=== PATIENT | female | born 1990 | race Caucasian/White ===

== ENCOUNTER 2017-08-07 05:16 | Inpatient (IN) | payer OTHER ==
[2017-08-07] MEDS ORDERED: Sodium Chloride 0.9% 10 ML Syringe FLUSH PRN (05:35)
[2017-08-07] MEDS ORDERED: Sodium Chloride 0.9% 2.5 ML Syringe FLUSH PRN (05:35)
[2017-08-07] MEDS ORDERED: ceFAZolin 2 GM in Premix Bag 1 BAG IV ONE (05:35)
[2017-08-07] MEDS ORDERED: Citric Acid/Sodium Citrate Solution 30 ML Cup PO SCH (05:45)
[2017-08-07] MEDS ORDERED: Oxytocin/0.9 % Sodium Chloride 30 UNIT/500 ML BAG IV SCH (05:45)
[2017-08-07] MEDS: Lactated Ringers 1,000 ML IV SCH ×5 (06:05→22:22)
[2017-08-07] MEDS ORDERED: fentaNYL 100 MCG/2 ML SDV ONE (08:21)
[2017-08-07] MEDS ORDERED: Morphine PF 10 MG/10 ML SDV ONE (08:21)
[2017-08-07] MEDS ORDERED: ePHEDrine 50 MG/ML SDV ONE (08:23)
[2017-08-07] MEDS ORDERED: Sodium Chloride 0.9% 20 ML ONE (08:23)
[2017-08-07] MEDS ORDERED: Oxytocin 10 Units/1 ML SDV ONE (08:23)
[2017-08-07] MEDS ORDERED: Ondansetron 4 MG/2 ML SDV ONE (08:26)
[2017-08-07] MEDS ORDERED: Ketorolac 30 MG/ML SDV ONE (08:26)
[2017-08-07] MEDS ORDERED: Acetaminophen/oxyCODONE 325-5 MG Tab PO PRN ×2 (08:29→10:05)
[2017-08-07] MEDS ORDERED: Octyl 2-Cyanoacrylate 1 Tube ONE (08:34)
--- NOTE | 2017-08-07 08:38 | PCM.PREANE ---
Preanesthetic Assessment - Procedure Proposed Procedure: Repeat Section - Anesthesia/Transfusion/Family Hx Anesthesia History: Prior Anesthesia Without Reaction Other Type of Anesthesia Reaction Comment: "my mother wakes up during surgery" Transfusion History: No Prior Transfusion(s) - Review of Systems General: No Symptoms Pulmonary: Cough, Other (Recent cold, cough) Cardiovascular: No Symptoms Gastrointestinal: No Symptoms Neurological: No Symptoms Other: Reports: None - Physical Assessment NPO Status Date: 08/06/17 NPO Status Time: 23:55 Height: 1.68 m Weight: 128.82 kg ASA Class: 2 Mental Status: Alert & Oriented x3 Airway Class: Mallampati = 2 Dentition: Reports: Normal Dentition Thyro-Mental Finger Breadths: 3 Mouth Opening Finger Breadths: 3 ROM/Head Extension: Full Lungs: Other (crackles to base of dependent lung, clearing with coughing. Recent cold reported) Cardiovascular: Regular Rate, Regular Rhythm - Lab Values: Laboratory Last Values WBC 10.61 K/uL (4.0-11.0) 08/07/17 05:53 RBC 3.81 M/uL (4.30-5.90) L 08/07/17 05:53 Hgb 9.8 g/dL (12.0-16.0) L 08/07/17 05:53 Hct 30.8 % (36.0-46.0) L 08/07/17 05:53 MCV 80.8 fL (80.0-98.0) 08/07/17 05:53 MCH 25.7 pg (27.0-32.0) L 08/07/17 05:53 MCHC 31.8 g/dL (31.0-37.0) 08/07/17 05:53 RDW Std Deviation 44.0 fl (28.0-62.0) 08/07/17 05:53 RDW Coeff of Aleyda 15 % (11.0-15.0) 08/07/17 05:53 Plt Count 273 K/uL (150-400) 08/07/17 05:53 MPV 10.40 fL (7.40-12.00) 08/07/17 05:53 Nucleated RBC % 0.0 /100WBC 08/07/17 05:53 Nucleated RBCs # 0 K/uL 08/07/17 05:53 Blood Type A POSITIVE 08/07/17 05:53 Antibody Screen NEGATIVE 08/07/17 05:53 - Allergies Allergies/Adverse Reactions: Allergies Allergy/AdvReac Type Severity Reaction Status Date / Time adhesive Allergy Blisters Verified 08/01/17 09:42 - Blood Blood Available: Yes Product(s) Available: PRBC - Acknowledgements Anesthesia Type Planned: Spinal Pt an Appropriate Candidate for the Planned Anesthesia: Yes Alternatives and Risks of Anesthesia Discussed w Pt/Guardian: Yes Pt/Guardian Understands and Agrees with Anesthesia Plan: Yes PreAnesthesia Questionnaire HEENT History: Reports: Other (See Below) Other HEENT History: wears glasses for nearsightedness Gastrointestinal History: Reports: None Other Gastrointestinal History: intermittent GERD with Genitourinary History: Reports: None 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 Psychiatric History: Reports: Anxiety, Depression Endocrine/Metabolic History: Reports: Obesity/BMI 30+ - Infectious Disease History Infectious Disease History: Reports: Chicken Pox - Past Surgical History Head Surgeries/Procedures: Reports: None HEENT Surgical History: Reports: Other (See Below) Other HEENT Surgeries/Procedures: wisdom teeth extraction GI Surgical History: Reports: Cholecystectomy Female Surgical History: Reports: Section Musculoskeletal Surgical History: Reports: Other (See Below) Other Musculoskeletal Surgeries/Procedures:: cyst removed from middle finger - SUBSTANCE USE Smoking Status *Q: Never Smoker Recreational Drug Use History: No - HOME MEDS Home Medications: Home Meds Pnv No.95/Ferrous Fum/Folic AC [ Multivitamin Tablet] 1 tab PO DAILY [History] - CURRENT (IN HOUSE) MEDS Current Meds: Current Medications Citric Acid/Sodium Citrate (Bicitra Solution) 30 ml PO .ONCE PADMAJA Lactated Ringer's (Ringers, Lactated) 1,000 mls @ 500 mls/hr IV .BOLUS PADMAJA Last Admin: 08/07/17 08:23 Dose: 999 mls/hr Oxytocin/Sodium Chloride (Oxytocin 30 Unit/500 Ml-Ns) 30 unit in 500 mls @ 250 mls/hr IV TITRATE PADMAJA Sodium Chloride (Saline Flush) 10 ml FLUSH ASDIRECTED PRN PRN Reason: Keep Vein Open Sodium Chloride (Saline Flush) 2.5 ml FLUSH ASDIRECTED PRN PRN Reason: Keep Vein Open Discontinued Medications Ephedrine Sulfate (Ephedrine Sulfate) Confirm Administered Dose 50 mg .ROUTE .STK-MED ONE Stop: 08/07/17 08:24 Fentanyl (Sublimaze) Confirm Administered Dose 100 mcg .ROUTE .STK-MED ONE Stop: 08/07/17 08:22 Cefazolin Sodium/Dextrose 2 gm (/ Premix) 50 mls @ 100 mls/hr IV ONETIME ONE Stop: 08/07/17 06:04 Sodium Chloride (Normal Saline) Confirm Administered Dose 20 mls @ as directed .ROUTE .STK-MED ONE Stop: 08/07/17 08:24 Ketorolac Tromethamine (Toradol) Confirm Administered Dose 30 mg .ROUTE .STK- MED ONE Stop: 08/07/17 08:27 Morphine Sulfate (Duramorph Pf) Confirm Administered Dose 10 mg .ROUTE .STK-MED ONE Stop: 08/07/17 08:22 Ondansetron HCl (Zofran) Confirm Administered Dose 4 mg .ROUTE .STK-MED ONE Stop: 08/07/17 08:27 Oxytocin (Pitocin) Confirm Administered Dose 20 unit .ROUTE .STK-MED ONE Stop: 08/07/17 08:24
[2017-08-07] MEDS ORDERED: diphenhydrAMINE 50 MG/ML SDV IVPUSH PRN ×2 (08:45→10:05)
--- NOTE | 2017-08-07 09:12 | PCM.LDHP ---
L&D History of Present Illness - General Date of Service: 08/07/17 Admit Problem/Dx: Patient Status Order with Admit Dx/Problem 08/07/17 05:35 Patient Status [ADT] Routine Admission Diagnosis/Problem Admission Diagnosis/Problem Source of Information: Patient History Limitations: Reports: No Limitations - History of Present Illness Improves with: Reports: None Worsens with: Reports: None Associated Symptoms: Reports: N - Related Data Allergies/Adverse Reactions: Allergies Allergy/AdvReac Type Severity Reaction Status Date / Time adhesive Allergy Blisters Verified 08/01/17 09:42 Home Medications: Home Meds Pnv No.95/Ferrous Fum/Folic AC [ Multivitamin Tablet] 1 tab PO DAILY [History] Past Medical History HEENT History: Reports: Other (See Below) Other HEENT History: wears glasses for nearsightedness Gastrointestinal History: Reports: None Other Gastrointestinal History: intermittent GERD with Genitourinary History: Reports: None 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 Psychiatric History: Reports: Anxiety, Depression Endocrine/Metabolic History: Reports: Obesity/BMI 30+ - Infectious Disease History Infectious Disease History: Reports: Chicken Pox - Past Surgical History Head Surgeries/Procedures: Reports: None HEENT Surgical History: Reports: Other (See Below) Other HEENT Surgeries/Procedures: wisdom teeth extraction GI Surgical History: Reports: Cholecystectomy Female Surgical History: Reports: Section Musculoskeletal Surgical History: Reports: Other (See Below) Other Musculoskeletal Surgeries/Procedures:: cyst removed from middle finger Social & Family History - Family History Cardiac: Reports: High Cholesterol OBGYN: Reports: Neurological: Reports: Seizure Psychiatric: Reports: Autism Endocrine/Metabolic: Reports: Hyperthyroidism Hematologic: Reports: Anemia Oncologic: Reports: Ovarian - Tobacco Use Smoking Status *Q: Never Smoker - Caffeine Use Caffeine Use: Reports: Soda, Tea - Recreational Drug Use Recreational Drug Use: No H&P Review of Systems - Review of Systems: Review Of Systems: See Below General: Reports: No Symptoms HEENT: Reports: No Symptoms Pulmonary: Reports: No Symptoms Cardiovascular: Reports: No Symptoms Gastrointestinal: Reports: No Symptoms Genitourinary: Reports: No Symptoms Musculoskeletal: Reports: No Symptoms Skin: Reports: No Symptoms Psychiatric: Reports: No Symptoms Neurological: Reports: No Symptoms Hematologic/Lymphatic: Reports: No Symptoms Immunologic: Reports: No Symptoms L&D Exam - Exam Exam: See Below - Vital Signs Weight: 128.82 kg - OB Specific Fundal Height In cm: 39 Contraction Intensity: Mild Movement: Active Heart Tones: Present Presentation: Vertex - Exam General: Alert, Oriented HEENT: PERRLA, Conjunctiva Clear, EACs Clear, EOMI, Hearing Intact, Mucosa Moist & [place], Nares Patent, Normal Nasal Septum, Posterior Pharynx Clear, TMs Clear Neck: Supple, Trachea Midline Lungs: Clear to Auscultation, Normal Respiratory Effort Cardiovascular: Regular Rate, Regular Rhythm GI/Abdominal Exam: Normal Bowel Sounds, Soft, Non-Tender, No Organomegaly, No Distention, No Abnormal Bruit, No Mass, Pelvis Stable Rectal Exam: Normal Exam, Normal Rectal Tone Genitourinary: Normal external exam, Normal bimanual exam, Normal speculum exam Back Exam: Normal Inspection, Full Range of Motion Extremities: Normal Inspection, Normal Range of Motion, Non-Tender, No Pedal Edema, Normal Capillary Refill Skin: Warm, Dry, Intact Neurological: Cranial Nerves Intact, Reflexes Equal Bilateral Psychiatric: Alert, Normal Affect, Normal Mood - Patient Data Lab Results Last 24 hrs: Laboratory Results - last 24 hr 08/07/17 08/07/17 Range/Units 05:53 05:53 WBC 10.61 (4.0-11.0) K/uL RBC 3.81 L (4.30-5.90) M/uL Hgb 9.8 L (12.0-16.0) g/dL Hct 30.8 L (36.0-46.0) % MCV 80.8 (80.0-98.0) fL MCH 25.7 L (27.0-32.0) pg MCHC 31.8 (31.0-37.0) g/dL RDW Std Deviation 44.0 (28.0-62.0) fl RDW Coeff of Aleyda 15 (11.0-15.0) % Plt Count 273 (150-400) K/uL MPV 10.40 (7.40-12.00) fL Nucleated RBC % 0.0 /100WBC Nucleated RBCs # 0 K/uL Blood Type A POSITIVE Antibody Screen NEGATIVE Result Diagrams: 08/07/17 05:53 Problem List Initiated/Reviewed/Updated: Yes Orders Last 24hrs: Active Orders 24 hr Category Date Time Status Patient Status [ADT] Routine ADT 08/07/17 05:35 Active Bradycardia-Neuroaxis [employer] [RC] ROUTINE Care 08/07/17 08:29 Active Non Stress Test [RC] PER UNIT ROUTINE Care 08/07/17 05:35 Active Hypertension-Neuroaxis [employer] [RC] ROUTINE Care 08/07/17 08:29 Active Hypotension-Neuroaxis [employer] [RC] ROUTINE Care 08/07/17 08:29 Active Notify Provider Vital Signs [RC] PRN Care 08/07/17 05:37 Active Oxygen Therapy [RC] ASDIRECTED Care 08/07/17 08:29 Active Oxygen Therapy [RC] PER UNIT ROUTINE Care 08/07/17 08:29 Active Procedure Site Prep Instruct [RC] ASDIRECTED Care 08/07/17 05:35 Active Up ad Yudith [RC] ASDIRECTED Care 08/07/17 05:35 Active Verify Patient Consent Obtain [RC] ASDIRECTED Care 08/07/17 05:35 Active Vital Signs [RC] PER UNIT ROUTINE Care 08/07/17 05:35 Active Vital Signs [RC] Q1H Care 08/07/17 08:29 Active Acetaminophen/oxyCODONE [Percocet 325-5 MG] Med 08/07/17 08:29 Active 1 tab PO Q4H PRN Citric Acid/Sodium Citrate [Bicitra Solution] Med 08/07/17 05:45 Active 30 ml PO .ONCE Lactated Ringers [Ringers, Lactated] 1,000 ml Med 08/07/17 05:45 Active IV .BOLUS Nalbuphine [Nubain] Med 08/07/17 08:45 Active 5 mg IVPUSH Q3H PRN Oxytocin/0.9 % Sodium Chloride [Oxytocin 30 Unit/500 ML Med 08/07/17 05:45 Active -NS] 30 unit in 500 ml IV TITRATE Sodium Chloride 0.9% [Saline Flush] Med 08/07/17 05:35 Active 10 ml FLUSH ASDIRECTED PRN Sodium Chloride 0.9% [Saline Flush] Med 08/07/17 05:35 Active 2.5 ml FLUSH ASDIRECTED PRN diphenhydrAMINE [Benadryl] Med 08/07/17 08:45 Active 25 mg IVPUSH Q4H PRN AN Neuroaxis [employer] Precaution Reflex [OM.PC] PER Oth 08/07/17 08:30 Ordered UNIT ROUTINE AN Neuroaxis Dur[employer] Precaution Reflex [OM.PC] PER Oth 08/08/17 08:30 Ordered UNIT ROUTINE Peripheral IV Insertion Adult [OM.PC] Routine Oth 08/07/17 05:35 Ordered Schedule Procedure [COMM] Per Unit Routine Oth 08/07/17 05:35 Ordered Resuscitation Status Routine Resus Stat 08/07/17 05:35 Ordered Medication Orders Citric Acid/Sodium Citrate (Bicitra Solution) 30 ml PO .ONCE PADMAJA Diphenhydramine HCl (Benadryl) 25 mg IVPUSH Q4H PRN PRN Reason: Itching Stop: 08/08/17 09:02 Lactated Ringer's (Ringers, Lactated) 1,000 mls @ 500 mls/hr IV .BOLUS PADMAJA Last Admin: 08/07/17 09:06 Dose: 999 mls/hr Infusion: 08/07/17 09:06 Dose: 999 mls/hr Admin: 08/07/17 08:23 Dose: 999 mls/hr Infusion: 08/07/17 08:05 Dose: 500 mls/hr Admin: 08/07/17 06:05 Dose: 500 mls/hr Oxytocin/Sodium Chloride (Oxytocin 30 Unit/500 Ml-Ns) 30 unit in 500 mls @ 250 mls/hr IV TITRATE PADMAJA Nalbuphine HCl (Nubain) 5 mg IVPUSH Q3H PRN PRN Reason: Pruritis Stop: 08/08/17 09:01 Oxycodone/Acetaminophen (Percocet 325-5 Mg) 1 tab PO Q4H PRN PRN Reason: Pain (moderate 4-6) Sodium Chloride (Saline Flush) 10 ml FLUSH ASDIRECTED PRN PRN Reason: Keep Vein Open Sodium Chloride (Saline Flush) 2.5 ml FLUSH ASDIRECTED PRN PRN Reason: Keep Vein Open Assessment/Plan Comment:: Termpregnancy admited for elective repeat C/section
[2017-08-07] MEDS ORDERED: ceFAZolin 1 GM Vial ONE (09:19)
[2017-08-07] MEDS ORDERED: diphenhydrAMINE 50 MG/ML SDV ONE (09:57)
[2017-08-07] MEDS ORDERED: Ondansetron 4 MG/2 ML SDV IV PRN (10:05)
[2017-08-07] MEDS ORDERED: Lanolin 100% Cream 7 GM Tube TOP PRN (10:05)
[2017-08-07] MEDS ORDERED: Bisacodyl 10 MG Supp RECTAL PRN (10:05)
--- NOTE | 2017-08-07 10:10 | PCM.OPNOTE ---
- General Post-Op/Procedure Note Date of Surgery/Procedure: 08/07/17 Operative Procedure(s): Repeat C/Section Pre Op Diagnosis: [id number], previous C/Section Post-Op Diagnosis: Same Anesthesia Technique: Spinal Primary Surgeon: Mike Sheth Bulkhead Carpenter: Celeste Thomason EBL in mLs: 700 Complications: None Condition: Good
[2017-08-07] MEDS: Nalbuphine 10 MG/1 ML Vial IVPUSH PRN ×3 (10:41→20:12)
--- NOTE | 2017-08-07 10:42 | PCM.POSTAN ---
POST ANESTHESIA ASSESSMENT - MENTAL STATUS Mental Status: Alert (Treated with Nubain for urticaria), Oriented - RESPIRATORY Respiratory Status: Respiratory Rate WNL, Airway Patent, O2 Saturation Stable - CARDIOVASCULAR CV Status: Pulse Rate WNL, Blood Pressure Stable - GASTROINTESTINAL GI Status: No Symptoms - POST OP HYDRATION Hydration Status: Adequate & Stable
[2017-08-07] MEDS ORDERED: Naloxone 0.4 MG/ML Syringe IVPUSH PRN (10:43)
[2017-08-07] MEDS: Ketorolac 30 MG/ML SDV IVPUSH SCH ×3 (12:40→22:22)
--- NOTE | 2017-08-07 14:16 | PCM48HPAN ---
Post Anesthesia Note - EVALUATION WITHIN 48HRS OF ANESTHETIC Vital Signs in Normal Range: Yes Patient Participated in Evaluation: Yes Respiratory Function Stable: Yes Airway Patent: Yes Cardiovascular Function Stable: Yes Hydration Status Stable: Yes Pain Control Satisfactory: Yes Nausea and Vomiting Control Satisfactory: Yes Mental Status Recovered: Yes
--- NOTE | 2017-08-07 17:07 | OR ---
SURGEON: Mike Sheth MD DATE OF PROCEDURE: 08/07/2017 PREOPERATIVE DIAGNOSIS: Intrauterine 39 plus 5, previous section, admitted for elective repeat section. POSTOPERATIVE DIAGNOSIS: Intrauterine 39 plus 5, previous section, admitted for elective repeat section. OPERATION PERFORMED: Repeat low transverse section. FRAME STRAIGHTENER: Celeste Thomason CNM. 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 ESTIMATED BLOOD LOSS: 700 mL. COMPLICATIONS: None. FINDING: Female fetus. score reported to be 8 and 9. The weight is not available. Normal uterus, tubes, and ovaries. INDICATION: This patient did have 3 previous sections. She is admitted for elective repeat section. She is 39 plus 5. PROCEDURE IN DETAIL: The patient was brought to the OR, properly identified, and after adequate level of spinal anesthesia and with a Wade catheter in the bladder, the patient was prepped and draped in sterile fashion as usual. After taken a time-out, a low transverse Pfannenstiel skin incision was done. Sabino's fascia and rectus fascia were opened in the direction of the incision. The 2 recti muscles were and peritoneal cavity was entered. A bladder flap was raised from the lower uterine segment. A low transverse uterine incision was done, extended manually with the hand, and the fetus was in the vertex position, delivered without any problem, cried immediately. score reported to be 8 and 9. The weight was not available. The placenta delivered spontaneous, complete, and intact. Repair of the lower uterine segment was done with 2-0 Vicryl continuous interlocking in 2 layers. The peritoneal cavity evacuated completely from all blood and blood clots and closed with 3-0 Vicryl continuous. The rectus fascia was closed with #1 PDS double strand continuous. The Sabino's fascia was closed with 3-0 Vicryl continuous. The skin was closed with 3-0 Vicryl on a Giovani needle in a subcuticular fashion. Instrument and sponge count was correct. The patient tolerated the procedure well, went to recovery room in stable general condition. CHAPIN / CHANDANA /[id number]
[2017-08-07] MEDS: Docusate Sodium 100 MG Cap PO SCH (20:12)
[2017-08-08] MEDS: Ketorolac 30 MG/ML SDV IVPUSH SCH ×2 (04:05→10:01)
--- NOTE | 2017-08-08 07:54 | PCM.PNPP ---
- General Info Date of Service: 08/08/17 Admission Dx/Problem (Free Text): Patient Status Order with Admit Dx/Problem 08/07/17 05:35 Patient Status [ADT] Routine Admission Diagnosis/Problem Admission Diagnosis/Problem Functional Status: Reports: Pain Controlled, Tolerating Diet, Ambulating - Review of Systems General: Reports: No Symptoms HEENT: Reports: No Symptoms Pulmonary: Reports: No Symptoms Cardiovascular: Reports: No Symptoms Gastrointestinal: Reports: No Symptoms Genitourinary: Reports: No Symptoms Musculoskeletal: Reports: No Symptoms Skin: Reports: No Symptoms Neurological: Reports: No Symptoms Psychiatric: Reports: No Symptoms - General Info Date of Service: 08/08/17 - Patient Data Vital Signs - Most Recent: Last Vital Signs Temp 36.6 C 08/08/17 04:00 Pulse 71 08/08/17 04:00 Resp 18 08/08/17 06:00 BP 107/64 08/08/17 04:00 Pulse Ox 94 L 08/08/17 06:00 Weight - Most Recent: 128.82 kg I&O - Last 24 Hours: Intake & Output 08/07/17 08/08/17 08/08/17 22:59 06:59 14:59 Intake Total 934 2040 Output Total 1025 150 Balance -91 1890 Lab Results - Last 24 Hours: Laboratory Results - last 24 hr 08/08/17 Range/Units 05:31 Hgb 8.7 L (12.0-16.0) g/dL Hct 27.6 L (36.0-46.0) % Med Orders - Current: Current Medications Bisacodyl (Dulcolax) 10 mg RECTAL .ONCE PRN PRN Reason: Constipation Citric Acid/Sodium Citrate (Bicitra Solution) 30 ml PO .ONCE PADMAJA Diphenhydramine HCl (Benadryl) 25 mg IVPUSH Q4H PRN PRN Reason: Itching Stop: 08/08/17 09:02 Last Admin: 08/07/17 14:24 Dose: 25 mg Diphenhydramine HCl (Benadryl) 25 mg IVPUSH Q6H PRN PRN Reason: Itching or Nausea Docusate Sodium (Colace) 100 mg PO BID PADMAJA Last Admin: 08/07/17 20:12 Dose: 100 mg Emollient Ointment (Lansinoh Hpa) 0 gm TOP ASDIRECTED PRN PRN Reason: Sore Nipples Lactated Ringer's (Ringers, Lactated) 1,000 mls @ 500 mls/hr IV .BOLUS [facility] Last Admin: 08/07/17 09:06 Dose: 999 mls/hr Oxytocin/Sodium Chloride (Oxytocin 30 Unit/500 Ml-Ns) 30 unit in 500 mls @ 250 mls/hr IV TITRATE [facility] Lactated Ringer's (Ringers, Lactated) 1,000 mls @ 125 mls/hr IV ASDIRECTED [facility] Last Admin: 08/07/17 22:22 Dose: 125 mls/hr Ibuprofen (Motrin) 800 mg PO Q8H PRN PRN Reason: mild pain or fever Ketorolac Tromethamine (Toradol) 30 mg IVPUSH Q6H [facility] Stop: 08/08/17 10:16 Last Admin: 08/08/17 04:05 Dose: 30 mg Nalbuphine HCl (Nubain) 5 mg IVPUSH Q3H PRN PRN Reason: Pruritis Stop: 08/08/17 09:01 Last Admin: 08/07/17 20:12 Dose: 5 mg Naloxone HCl (Narcan) 0.1 mg IVPUSH ONETIME PRN PRN Reason: Respiratory Depression Stop: 08/08/17 10:43 Ondansetron HCl (Zofran) 4 mg IV Q4H PRN PRN Reason: Nausea/Vomiting Oxycodone/Acetaminophen (Percocet 325-5 Mg) 1 tab PO Q4H PRN PRN Reason: Pain (moderate 4-6) Oxycodone/Acetaminophen (Percocet 325-5 Mg) 1 tab PO Q4H PRN PRN Reason: Pain (moderate 4-6) Oxycodone/Acetaminophen (Percocet 325-5 Mg) 2 tab PO Q4H PRN PRN Reason: Pain (moderate 4-6) Sodium Chloride (Saline Flush) 10 ml FLUSH ASDIRECTED PRN PRN Reason: Keep Vein Open Sodium Chloride (Saline Flush) 2.5 ml FLUSH ASDIRECTED PRN PRN Reason: Keep Vein Open Discontinued Medications Cefazolin Sodium (Ancef) Confirm Administered Dose 2 gm .ROUTE .STK-MED ONE Stop: 08/07/17 09:20 Diphenhydramine HCl (Benadryl) Confirm Administered Dose 50 mg .ROUTE .STK-MED ONE Stop: 08/07/17 09:58 Ephedrine Sulfate (Ephedrine Sulfate) Confirm Administered Dose 50 mg .ROUTE .STK-MED ONE Stop: 08/07/17 08:24 Fentanyl (Sublimaze) Confirm Administered Dose 100 mcg .ROUTE .STK-MED ONE Stop: 08/07/17 08:22 Cefazolin Sodium/Dextrose 2 gm (/ Premix) 50 mls @ 100 mls/hr IV ONETIME ONE Stop: 08/07/17 06:04 Last Admin: 08/07/17 12:40 Dose: Not Given Sodium Chloride (Normal Saline) Confirm Administered Dose 20 mls @ as directed .ROUTE .STK-MED ONE Stop: 08/07/17 08:24 Ketorolac Tromethamine (Toradol) Confirm Administered Dose 30 mg .ROUTE .STK- MED ONE Stop: 08/07/17 08:27 Morphine Sulfate (Duramorph Pf) Confirm Administered Dose 10 mg .ROUTE .STK-MED ONE Stop: 08/07/17 08:22 Octyl Cyanoacrylate (Dermabond Advance) Confirm Administered Dose 1 applic .ROUTE .STK-MED ONE Stop: 08/07/17 08:35 Ondansetron HCl (Zofran) Confirm Administered Dose 4 mg .ROUTE .STK-MED ONE Stop: 08/07/17 08:27 Oxytocin (Pitocin) Confirm Administered Dose 20 unit .ROUTE .STK-MED ONE Stop: 08/07/17 08:24 - Interaction Infant Disposition, : in Room with Family Interaction: Holding Infant Feeding: Breastfed ; Nursed Well Support Person: - Recovery Exam Fundal Tone: Firm Fundal Level: At Umbilicus Fundal Placement: Midline Lochia Amount: Scant Lochia Color: Rubra/Red Perineum Description: Intact, Minimal Bruising/Swelling Episiotomy/Laceration: None Bladder Status: Indwelling Catheter in Place Urinary Elimination: Indwelling Catheter - Exam General: Alert, Oriented, Cooperative, No Acute Distress Lungs: Clear to Auscultation (O2 on due to drop in SPO2 when sleeping), Normal Respiratory Effort Cardiovascular: Regular Rate, Regular Rhythm, No Murmurs GI/Abdominal Exam: Soft, No Organomegaly Extremities: Normal Range of Motion, Non-Tender, No Pedal Edema, Normal Capillary Refill Skin: Warm, Dry, Intact Wound/Incisions: Healing Well Neurological: No New Focal Deficit, Normal Speech, Normal Tone Psy/Mental Status: Alert, Normal Affect, Normal Mood - Problem List & Annotations (1) Status post delivery SNOMED Code(s): 390847704 Code(s): Z98.891 - HISTORY OF UTERINE SCAR FROM PREVIOUS SURGERY Status: Acute Priority: High Current Visit: Yes - Problem List Review Problem List Initiated/Reviewed/Updated: Yes - Assessment Assessment:: PP day 1 Doing well, VSS, AF, lochia small, Incision dressing intact and dry, breast feeding well. Advised OOB to walk and shower. Stable - Plan Plan:: Term admitted for elective repeat C/section PP day 1 December d/c Wade, IV, and incision dressing when walking and showered. continue pp plan of care
[2017-08-08] MEDS: Docusate Sodium 100 MG Cap PO SCH ×2 (10:01→21:03)
--- NOTE | 2017-08-08 10:52 | PCM.SURGPN ---
- General Info Date of Service: 08/08/17 POD#: 1 Functional Status: Reports: Pain Controlled - Review of Systems General: Reports: No Symptoms HEENT: Reports: No Symptoms Pulmonary: Reports: No Symptoms Cardiovascular: Reports: No Symptoms Gastrointestinal: Reports: No Symptoms Genitourinary: Reports: No Symptoms Musculoskeletal: Reports: No Symptoms Skin: Reports: No Symptoms Neurological: Reports: No Symptoms Psychiatric: Reports: No Symptoms - Patient Data Vitals - Most Recent: Last Vital Signs Temp 36.4 C 08/08/17 09:15 Pulse 76 08/08/17 09:15 Resp 16 08/08/17 09:15 BP 104/63 08/08/17 09:15 Pulse Ox 91 L 08/08/17 09:15 Weight - Most Recent: 128.82 kg I&O - Last 24 Hours: Intake & Output 08/07/17 08/08/17 08/08/17 22:59 06:59 14:59 Intake Total 934 2040 Output Total 1025 150 Balance -91 1890 Lab Results Last 24 Hrs: Laboratory Results - last 24 hr 08/08/17 Range/Units 05:31 Hgb 8.7 L (12.0-16.0) g/dL Hct 27.6 L (36.0-46.0) % Med Orders - Current: Current Medications Bisacodyl (Dulcolax) 10 mg RECTAL .ONCE PRN PRN Reason: Constipation Citric Acid/Sodium Citrate (Bicitra Solution) 30 ml PO .ONCE PADMAJA Diphenhydramine HCl (Benadryl) 25 mg IVPUSH Q6H PRN PRN Reason: Itching or Nausea Docusate Sodium (Colace) 100 mg PO BID [facility] Last Admin: 08/08/17 10:01 Dose: 100 mg Emollient Ointment (Lansinoh Hpa) 0 gm TOP ASDIRECTED PRN PRN Reason: Sore Nipples Lactated Ringer's (Ringers, Lactated) 1,000 mls @ 500 mls/hr IV .BOLUS [facility] Last Admin: 08/07/17 09:06 Dose: 999 mls/hr Oxytocin/Sodium Chloride (Oxytocin 30 Unit/500 Ml-Ns) 30 unit in 500 mls @ 250 mls/hr IV TITRATE [facility] Lactated Ringer's (Ringers, Lactated) 1,000 mls @ 125 mls/hr IV ASDIRECTED PADMAJA Last Admin: 08/07/17 22:22 Dose: 125 mls/hr Ibuprofen (Motrin) 800 mg PO Q8H PRN PRN Reason: mild pain or fever Ondansetron HCl (Zofran) 4 mg IV Q4H PRN PRN Reason: Nausea/Vomiting Oxycodone/Acetaminophen (Percocet 325-5 Mg) 1 tab PO Q4H PRN PRN Reason: Pain (moderate 4-6) Oxycodone/Acetaminophen (Percocet 325-5 Mg) 1 tab PO Q4H PRN PRN Reason: Pain (moderate 4-6) Oxycodone/Acetaminophen (Percocet 325-5 Mg) 2 tab PO Q4H PRN PRN Reason: Pain (moderate 4-6) Sodium Chloride (Saline Flush) 10 ml FLUSH ASDIRECTED PRN PRN Reason: Keep Vein Open Sodium Chloride (Saline Flush) 2.5 ml FLUSH ASDIRECTED PRN PRN Reason: Keep Vein Open Discontinued Medications Cefazolin Sodium (Ancef) Confirm Administered Dose 2 gm .ROUTE .STK-MED ONE Stop: 08/07/17 09:20 Diphenhydramine HCl (Benadryl) 25 mg IVPUSH Q4H PRN PRN Reason: Itching Stop: 08/08/17 09:02 Last Admin: 08/07/17 14:24 Dose: 25 mg Diphenhydramine HCl (Benadryl) Confirm Administered Dose 50 mg .ROUTE .STK-MED ONE Stop: 08/07/17 09:58 Ephedrine Sulfate (Ephedrine Sulfate) Confirm Administered Dose 50 mg .ROUTE .STK-MED ONE Stop: 08/07/17 08:24 Fentanyl (Sublimaze) Confirm Administered Dose 100 mcg .ROUTE .STK-MED ONE Stop: 08/07/17 08:22 Cefazolin Sodium/Dextrose 2 gm (/ Premix) 50 mls @ 100 mls/hr IV ONETIME ONE Stop: 08/07/17 06:04 Last Admin: 08/07/17 12:40 Dose: Not Given Sodium Chloride (Normal Saline) Confirm Administered Dose 20 mls @ as directed .ROUTE .STK-MED ONE Stop: 08/07/17 08:24 Ketorolac Tromethamine (Toradol) Confirm Administered Dose 30 mg .ROUTE .STK- MED ONE Stop: 08/07/17 08:27 Ketorolac Tromethamine (Toradol) 30 mg IVPUSH Q6H PADMAJA Stop: 08/08/17 10:16 Last Admin: 08/08/17 10:01 Dose: 30 mg Morphine Sulfate (Duramorph Pf) Confirm Administered Dose 10 mg .ROUTE .STK-MED ONE Stop: 08/07/17 08:22 Nalbuphine HCl (Nubain) 5 mg IVPUSH Q3H PRN PRN Reason: Pruritis Stop: 08/08/17 09:01 Last Admin: 08/07/17 20:12 Dose: 5 mg Naloxone HCl (Narcan) 0.1 mg IVPUSH ONETIME PRN PRN Reason: Respiratory Depression Stop: 08/08/17 10:43 Octyl Cyanoacrylate (Dermabond Advance) Confirm Administered Dose 1 applic .ROUTE .STK-MED ONE Stop: 08/07/17 08:35 Ondansetron HCl (Zofran) Confirm Administered Dose 4 mg .ROUTE .STK-MED ONE Stop: 08/07/17 08:27 Oxytocin (Pitocin) Confirm Administered Dose 20 unit .ROUTE .STK-MED ONE Stop: 08/07/17 08:24 - Exam Wound/Incisions: Healing Well General: Alert, Oriented HEENT: Pupils Equal Neck: Supple Lungs: Clear to Auscultation, Normal Respiratory Effort Cardiovascular: Regular Rate, Regular Rhythm GI/Abdominal Exam: Normal Bowel Sounds, Soft, Non-Tender, No Organomegaly, No Distention, No Abnormal Bruit, No Mass, Pelvis Stable Extremities: Normal Inspection, Normal Range of Motion, Non-Tender, No Pedal Edema, Normal Capillary Refill Skin: Warm, Dry, Intact Neurological: No New Focal Deficit Psy/Mental Status: Alert, Normal Affect, Normal Mood - Problem List Review Problem List Initiated/Reviewed/Updated: Yes - My Orders Last 24 Hours: Active Orders 24 hr Category Date Time Status Patient Status [ADT] Routine ADT 08/07/17 10:06 Active Ambulate [RC] PER UNIT ROUTINE Care 08/07/17 10:06 Active Antiembolic Devices [RC] PER UNIT ROUTINE Care 08/07/17 10:06 Active Communication Order [RC] PER UNIT ROUTINE Care 08/07/17 10:06 Active Communication Order [RC] PER UNIT ROUTINE Care 08/07/17 10:06 Active Communication Order [RC] Per Unit Routine Care 08/07/17 10:06 Active May Shower [RC] ASDIRECTED Care 08/07/17 10:06 Active RT Incentive Spirometry [RC] Q2HWA Care 08/07/17 10:06 Active Regular Diet [DIET] Diet 08/07/17 Dinner Active Acetaminophen/oxyCODONE [Percocet 325-5 MG] Med 08/07/17 10:05 Active 1 tab PO Q4H PRN Acetaminophen/oxyCODONE [Percocet 325-5 MG] Med 08/07/17 10:05 Active 2 tab PO Q4H PRN Bisacodyl [Dulcolax] Med 08/07/17 10:05 Active 10 mg RECTAL .ONCE PRN Docusate Sodium [Colace] Med 08/07/17 21:00 Active 100 mg PO BID Ibuprofen [Motrin] Med 08/07/17 10:05 Active 800 mg PO Q8H PRN Lactated Ringers [Ringers, Lactated] 1,000 ml Med 08/07/17 10:15 Active IV ASDIRECTED Lanolin [Lansinoh HPA] Med 08/07/17 10:05 Active See Dose Instructions TOP ASDIRECTED PRN Ondansetron [Zofran] Med 08/07/17 10:05 Active 4 mg IV Q4H PRN diphenhydrAMINE [Benadryl] Med 08/07/17 10:05 Active 25 mg IVPUSH Q6H PRN AN Neuroaxis Duramorph Precaution Reflex [OM.PC] PER Oth 08/08/17 08:30 Ordered UNIT ROUTINE Assess Lochia [WOMSER] Per Unit Routine Oth 08/07/17 10:06 Ordered Assess Uterine Involution [WOMSER] Per Unit Routine Oth 08/07/17 10:06 Ordered Breast Pump [WOMSER] Per Unit Routine Oth 08/07/17 10:06 Ordered Peripheral IV Discontinue [OM.PC] Routine Oth 08/07/17 10:06 Ordered Sequential Compression Device [OM.PC] Per Unit Routine Oth 08/07/17 10:06 Ordered Medication Orders Bisacodyl (Dulcolax) 10 mg RECTAL .ONCE PRN PRN Reason: Constipation Citric Acid/Sodium Citrate (Bicitra Solution) 30 ml PO .ONCE [facility] Diphenhydramine HCl (Benadryl) 25 mg IVPUSH Q6H PRN PRN Reason: Itching or Nausea Docusate Sodium (Colace) 100 mg PO BID [facility] Last Admin: 08/08/17 10:01 Dose: 100 mg Admin: 08/07/17 20:12 Dose: 100 mg Emollient Ointment (Lansinoh Hpa) 0 gm TOP ASDIRECTED PRN PRN Reason: Sore Nipples Lactated Ringer's (Ringers, Lactated) 1,000 mls @ 500 mls/hr IV .BOLUS [facility] Last Admin: 08/07/17 09:06 Dose: 999 mls/hr Infusion: 08/07/17 09:06 Dose: 999 mls/hr Admin: 08/07/17 08:23 Dose: 999 mls/hr Infusion: 08/07/17 08:05 Dose: 500 mls/hr Admin: 08/07/17 06:05 Dose: 500 mls/hr Oxytocin/Sodium Chloride (Oxytocin 30 Unit/500 Ml-Ns) 30 unit in 500 mls @ 250 mls/hr IV TITRATE [facility] Lactated Ringer's (Ringers, Lactated) 1,000 mls @ 125 mls/hr IV ASDIRECTED [facility] Last Admin: 08/07/17 22:22 Dose: 125 mls/hr Infusion: 08/07/17 22:22 Dose: 125 mls/hr Admin: 08/07/17 14:24 Dose: 125 mls/hr Ibuprofen (Motrin) 800 mg PO Q8H PRN PRN Reason: mild pain or fever Ondansetron HCl (Zofran) 4 mg IV Q4H PRN PRN Reason: Nausea/Vomiting Oxycodone/Acetaminophen (Percocet 325-5 Mg) 1 tab PO Q4H PRN PRN Reason: Pain (moderate 4-6) Oxycodone/Acetaminophen (Percocet 325-5 Mg) 1 tab PO Q4H PRN PRN Reason: Pain (moderate 4-6) Oxycodone/Acetaminophen (Percocet 325-5 Mg) 2 tab PO Q4H PRN PRN Reason: Pain (moderate 4-6) Sodium Chloride (Saline Flush) 10 ml FLUSH ASDIRECTED PRN PRN Reason: Keep Vein Open Sodium Chloride (Saline Flush) 2.5 ml FLUSH ASDIRECTED PRN PRN Reason: Keep Vein Open - Assessment Assessment (Free Text/Narrative):: Status post section postoperative day #1 the patient is doing well her vital signs stable and her lab work is normal - Plan Plan (Free Text/Narrative):: Planning to discharge the patient tomorrow
[2017-08-08] MEDS: Acetaminophen/oxyCODONE 325-5 MG Tab PO PRN (16:16)
[2017-08-08] MEDS: diphenhydrAMINE 25 MG Cap PO PRN (18:47)
[2017-08-08] MEDS: Ibuprofen 800 MG Tab PO PRN (21:03)
[2017-08-09] MEDS: Acetaminophen/oxyCODONE 325-5 MG Tab PO PRN ×2 (01:05→06:26)
[2017-08-09] MEDS: Ibuprofen 800 MG Tab PO PRN (05:13)
[2017-08-09] MEDS: diphenhydrAMINE 25 MG Cap PO PRN (05:23)
--- NOTE | 2017-08-09 08:09 | PCM.DCSUM1 ---
Discharge Summary - Hospital Course Free Text/Narrative:: Discharge home with infant. Follow up 10 days for incision check and 6 weeks for post exam or sooner if needed. - Discharge Data Discharge Date: 08/09/17 Discharge Disposition: Home, Self-Care 01 Condition: Good - Discharge Diagnosis/Problem(s) (1) Status post delivery SNOMED Code(s): 850584344 ICD Code: Z98.891 - HISTORY OF UTERINE SCAR FROM PREVIOUS SURGERY Status: Acute Priority: High Current Visit: Yes - Patient Summary/Data Operative Procedure(s) Performed: Repeat C/Section - Patient Instructions Diet: Usual Diet as Tolerated Activity: As Tolerated, No Strenuous Activities, Rest and Relax Today Driving: May Drive Today Showering/Bathing: May Shower Wound/Incision Care: Keep Operative Site/Wound Site Clean and Dry Notify Provider of: Fever, Increased Pain, Swelling and Redness, Drainage, Nausea and/or Vomiting Other/Special Instructions: Discharge home with . Follow up 10 days for incision check and 6 weeks for post exam or sooner if needed. - Discharge Plan Home Medications: Home Meds Pnv No.95/Ferrous Fum/Folic AC [ Multivitamin Tablet] 1 tab PO DAILY [History] Referrals: [facility] [Outside] Celeste Thomason CNM [Mid-] - (1 week- August@ 3:00pm w/ Dr. Sheth 6 week- September 11 @ 3:00pm w/ Celeste Thomason ) - General Info Date of Service: 08/09/17 Admission Dx/Problem (Free Text: Patient Status Order with Admit Dx/Problem 08/07/17 05:35 Patient Status [ADT] Routine Admission Diagnosis/Problem Admission Diagnosis/Problem Functional Status: Reports: Pain Controlled, Tolerating Diet, Ambulating, Urinating - Review of Systems General: Reports: No Symptoms HEENT: Reports: No Symptoms Pulmonary: Reports: No Symptoms Cardiovascular: Reports: No Symptoms Gastrointestinal: Reports: No Symptoms Genitourinary: Reports: No Symptoms Musculoskeletal: Reports: No Symptoms Skin: Reports: No Symptoms Neurological: Reports: No Symptoms Psychiatric: Reports: No Symptoms - Patient Data Vitals - Most Recent: Last Vital Signs Temp 36.5 C 08/09/17 03:51 Pulse 79 08/09/17 03:51 Resp 18 08/09/17 03:51 BP 102/64 08/09/17 03:51 Pulse Ox 97 08/09/17 03:51 Weight - Most Recent: 128.82 kg Med Orders - Current: Current Medications Bisacodyl (Dulcolax) 10 mg RECTAL .ONCE PRN PRN Reason: Constipation Citric Acid/Sodium Citrate (Bicitra Solution) 30 ml PO .ONCE PADMAJA Diphenhydramine HCl (Benadryl) 25 mg IVPUSH Q6H PRN PRN Reason: Itching or Nausea Diphenhydramine HCl (Benadryl) 25 mg PO Q4H PRN PRN Reason: Itching Last Admin: 08/09/17 05:23 Dose: 25 mg Docusate Sodium (Colace) 100 mg PO BID PADMAJA Last Admin: 08/08/17 21:03 Dose: 100 mg Emollient Ointment (Lansinoh Hpa) 0 gm TOP ASDIRECTED PRN PRN Reason: Sore Nipples Lactated Ringer's (Ringers, Lactated) 1,000 mls @ 500 mls/hr IV .BOLUS [facility] Last Admin: 08/07/17 09:06 Dose: 999 mls/hr Oxytocin/Sodium Chloride (Oxytocin 30 Unit/500 Ml-Ns) 30 unit in 500 mls @ 250 mls/hr IV TITRATE [facility] Lactated Ringer's (Ringers, Lactated) 1,000 mls @ 125 mls/hr IV ASDIRECTED [facility] Last Admin: 08/07/17 22:22 Dose: 125 mls/hr Ibuprofen (Motrin) 800 mg PO Q8H PRN PRN Reason: mild pain or fever Last Admin: 08/09/17 05:13 Dose: 800 mg Ondansetron HCl (Zofran) 4 mg IV Q4H PRN PRN Reason: Nausea/Vomiting Oxycodone/Acetaminophen (Percocet 325-5 Mg) 1 tab PO Q4H PRN PRN Reason: Pain (moderate 4-6) Oxycodone/Acetaminophen (Percocet 325-5 Mg) 1 tab PO Q4H PRN PRN Reason: Pain (moderate 4-6) Last Admin: 08/08/17 12:29 Dose: 1 tab Oxycodone/Acetaminophen (Percocet 325-5 Mg) 2 tab PO Q4H PRN PRN Reason: Pain (moderate 4-6) Last Admin: 08/09/17 06:26 Dose: 2 tab Sodium Chloride (Saline Flush) 10 ml FLUSH ASDIRECTED PRN PRN Reason: Keep Vein Open Sodium Chloride (Saline Flush) 2.5 ml FLUSH ASDIRECTED PRN PRN Reason: Keep Vein Open Discontinued Medications Cefazolin Sodium (Ancef) Confirm Administered Dose 2 gm .ROUTE .STK-MED ONE Stop: 08/07/17 09:20 Diphenhydramine HCl (Benadryl) 25 mg IVPUSH Q4H PRN PRN Reason: Itching Stop: 08/08/17 09:02 Last Admin: 08/07/17 14:24 Dose: 25 mg Diphenhydramine HCl (Benadryl) Confirm Administered Dose 50 mg .ROUTE .STK-MED ONE Stop: 08/07/17 09:58 Ephedrine Sulfate (Ephedrine Sulfate) Confirm Administered Dose 50 mg .ROUTE .STK-MED ONE Stop: 08/07/17 08:24 Fentanyl (Sublimaze) Confirm Administered Dose 100 mcg .ROUTE .STK-MED ONE Stop: 08/07/17 08:22 Cefazolin Sodium/Dextrose 2 gm (/ Premix) 50 mls @ 100 mls/hr IV ONETIME ONE Stop: 08/07/17 06:04 Last Admin: 08/07/17 12:40 Dose: Not Given Sodium Chloride (Normal Saline) Confirm Administered Dose 20 mls @ as directed .ROUTE .STK-MED ONE Stop: 08/07/17 08:24 Ketorolac Tromethamine (Toradol) Confirm Administered Dose 30 mg .ROUTE .STK- MED ONE Stop: 08/07/17 08:27 Ketorolac Tromethamine (Toradol) 30 mg IVPUSH Q6H PADMAJA Stop: 08/08/17 10:16 Last Admin: 08/08/17 10:01 Dose: 30 mg Morphine Sulfate (Duramorph Pf) Confirm Administered Dose 10 mg .ROUTE .STK-MED ONE Stop: 08/07/17 08:22 Nalbuphine HCl (Nubain) 5 mg IVPUSH Q3H PRN PRN Reason: Pruritis Stop: 08/08/17 09:01 Last Admin: 08/07/17 20:12 Dose: 5 mg Naloxone HCl (Narcan) 0.1 mg IVPUSH ONETIME PRN PRN Reason: Respiratory Depression Stop: 08/08/17 10:43 Octyl Cyanoacrylate (Dermabond Advance) Confirm Administered Dose 1 applic .ROUTE .STK-MED ONE Stop: 08/07/17 08:35 Ondansetron HCl (Zofran) Confirm Administered Dose 4 mg .ROUTE .STK-MED ONE Stop: 08/07/17 08:27 Oxytocin (Pitocin) Confirm Administered Dose 20 unit .ROUTE .STK-MED ONE Stop: 08/07/17 08:24 - Exam General: Reports: Alert, Oriented, Cooperative, No Acute Distress Lungs: Reports: Clear to Auscultation, Normal Respiratory Effort Cardiovascular: Reports: Regular Rate, Regular Rhythm, No Murmurs GI/Abdominal Exam: Soft, Non-Tender (Female) Exam: Vaginal Bleeding Rectal (Female) Exam: Deferred Back Exam: Reports: Full Range of Motion Extremities: Normal Range of Motion, Non-Tender, No Pedal Edema, Normal Capillary Refill Skin: Reports: Warm, Dry, Intact Wound/Incisions: Reports: Healing Well, No Drainage Neurological: Reports: No New Focal Deficit, Normal Speech, Normal Tone Psy/Mental Status: Reports: Alert, Normal Affect, Normal Mood *Q Meaningful Use (DIS) - VTE *Q VTE Criteria *Q: - Stroke *Q Stroke Criteria *Q: - AMI *Q AMI Criteria *Q:
--- NOTE | 2017-08-09 08:57 | PCM.SURGPN ---
- General Info Date of Service: 08/09/17 POD#: 2 Functional Status: Reports: Pain Controlled - Review of Systems General: Reports: No Symptoms HEENT: Reports: No Symptoms Pulmonary: Reports: No Symptoms Cardiovascular: Reports: No Symptoms Gastrointestinal: Reports: No Symptoms Genitourinary: Reports: No Symptoms Musculoskeletal: Reports: No Symptoms Skin: Reports: No Symptoms Neurological: Reports: No Symptoms Psychiatric: Reports: No Symptoms - Patient Data Vitals - Most Recent: Last Vital Signs Temp 36.5 C 08/09/17 03:51 Pulse 79 08/09/17 03:51 Resp 18 08/09/17 03:51 BP 102/64 08/09/17 03:51 Pulse Ox 97 08/09/17 03:51 Weight - Most Recent: 128.82 kg Med Orders - Current: Current Medications Bisacodyl (Dulcolax) 10 mg RECTAL .ONCE PRN PRN Reason: Constipation Citric Acid/Sodium Citrate (Bicitra Solution) 30 ml PO .ONCE PADMAJA Diphenhydramine HCl (Benadryl) 25 mg IVPUSH Q6H PRN PRN Reason: Itching or Nausea Diphenhydramine HCl (Benadryl) 25 mg PO Q4H PRN PRN Reason: Itching Last Admin: 08/09/17 05:23 Dose: 25 mg Docusate Sodium (Colace) 100 mg PO BID PADMAJA Last Admin: 08/08/17 21:03 Dose: 100 mg Emollient Ointment (Lansinoh Hpa) 0 gm TOP ASDIRECTED PRN PRN Reason: Sore Nipples Lactated Ringer's (Ringers, Lactated) 1,000 mls @ 500 mls/hr IV .BOLUS [facility] Last Admin: 08/07/17 09:06 Dose: 999 mls/hr Oxytocin/Sodium Chloride (Oxytocin 30 Unit/500 Ml-Ns) 30 unit in 500 mls @ 250 mls/hr IV TITRATE PADMAJA Lactated Ringer's (Ringers, Lactated) 1,000 mls @ 125 mls/hr IV ASDIRECTED [facility] Last Admin: 08/07/17 22:22 Dose: 125 mls/hr Ibuprofen (Motrin) 800 mg PO Q8H PRN PRN Reason: mild pain or fever Last Admin: 08/09/17 05:13 Dose: 800 mg Ondansetron HCl (Zofran) 4 mg IV Q4H PRN PRN Reason: Nausea/Vomiting Oxycodone/Acetaminophen (Percocet 325-5 Mg) 1 tab PO Q4H PRN PRN Reason: Pain (moderate 4-6) Oxycodone/Acetaminophen (Percocet 325-5 Mg) 1 tab PO Q4H PRN PRN Reason: Pain (moderate 4-6) Last Admin: 08/08/17 12:29 Dose: 1 tab Oxycodone/Acetaminophen (Percocet 325-5 Mg) 2 tab PO Q4H PRN PRN Reason: Pain (moderate 4-6) Last Admin: 08/09/17 06:26 Dose: 2 tab Sodium Chloride (Saline Flush) 10 ml FLUSH ASDIRECTED PRN PRN Reason: Keep Vein Open Sodium Chloride (Saline Flush) 2.5 ml FLUSH ASDIRECTED PRN PRN Reason: Keep Vein Open Discontinued Medications Cefazolin Sodium (Ancef) Confirm Administered Dose 2 gm .ROUTE .STK-MED ONE Stop: 08/07/17 09:20 Diphenhydramine HCl (Benadryl) 25 mg IVPUSH Q4H PRN PRN Reason: Itching Stop: 08/08/17 09:02 Last Admin: 08/07/17 14:24 Dose: 25 mg Diphenhydramine HCl (Benadryl) Confirm Administered Dose 50 mg .ROUTE .STK-MED ONE Stop: 08/07/17 09:58 Ephedrine Sulfate (Ephedrine Sulfate) Confirm Administered Dose 50 mg .ROUTE .STK-MED ONE Stop: 08/07/17 08:24 Fentanyl (Sublimaze) Confirm Administered Dose 100 mcg .ROUTE .STK-MED ONE Stop: 08/07/17 08:22 Cefazolin Sodium/Dextrose 2 gm (/ Premix) 50 mls @ 100 mls/hr IV ONETIME ONE Stop: 08/07/17 06:04 Last Admin: 08/07/17 12:40 Dose: Not Given Sodium Chloride (Normal Saline) Confirm Administered Dose 20 mls @ as directed .ROUTE .STK-MED ONE Stop: 08/07/17 08:24 Ketorolac Tromethamine (Toradol) Confirm Administered Dose 30 mg .ROUTE .STK- MED ONE Stop: 01/01/18 08:27 Ketorolac Tromethamine (Toradol) 30 mg IVPUSH Q6H [facility] Stop: 08/08/17 10:16 Last Admin: 08/08/17 10:01 Dose: 30 mg Morphine Sulfate (Duramorph Pf) Confirm Administered Dose 10 mg .ROUTE .STK-MED ONE Stop: 08/07/17 08:22 Nalbuphine HCl (Nubain) 5 mg IVPUSH Q3H PRN PRN Reason: Pruritis Stop: 08/08/17 09:01 Last Admin: 08/07/17 20:12 Dose: 5 mg Naloxone HCl (Narcan) 0.1 mg IVPUSH ONETIME PRN PRN Reason: Respiratory Depression Stop: 08/08/17 10:43 Octyl Cyanoacrylate (Dermabond Advance) Confirm Administered Dose 1 applic .ROUTE .STK-MED ONE Stop: 08/07/17 08:35 Ondansetron HCl (Zofran) Confirm Administered Dose 4 mg .ROUTE .STK-MED ONE Stop: 08/07/17 08:27 Oxytocin (Pitocin) Confirm Administered Dose 20 unit .ROUTE .STK-MED ONE Stop: 08/07/17 08:24 - Exam Wound/Incisions: Healing Well General: Alert, Oriented HEENT: Pupils Equal Neck: Supple Lungs: Clear to Auscultation, Normal Respiratory Effort Cardiovascular: Regular Rate, Regular Rhythm GI/Abdominal Exam: Normal Bowel Sounds, Soft, Non-Tender, No Organomegaly, No Distention, No Abnormal Bruit, No Mass, Pelvis Stable Extremities: Normal Inspection, Normal Range of Motion, Non-Tender, No Pedal Edema, Normal Capillary Refill Skin: Warm, Dry, Intact Neurological: No New Focal Deficit Psy/Mental Status: Alert, Normal Affect, Normal Mood - Problem List Review Problem List Initiated/Reviewed/Updated: Yes - My Orders Last 24 Hours: Active Orders 24 hr Category Date Time Status Ready for Discharge [RC] PER UNIT ROUTINE Care 08/09/17 08:10 Active diphenhydrAMINE [Benadryl] Med 08/08/17 18:11 Active 25 mg PO Q4H PRN AN Neuroaxis Duramorph Precaution Reflex [OM.PC] PER Oth 08/08/17 08:30 Ordered UNIT ROUTINE Medication Orders Bisacodyl (Dulcolax) 10 mg RECTAL .ONCE PRN PRN Reason: Constipation Citric Acid/Sodium Citrate (Bicitra Solution) 30 ml PO .ONCE PADMAJA Diphenhydramine HCl (Benadryl) 25 mg IVPUSH Q6H PRN PRN Reason: Itching or Nausea Diphenhydramine HCl (Benadryl) 25 mg PO Q4H PRN PRN Reason: Itching Last Admin: 08/09/17 05:23 Dose: 25 mg Admin: 08/08/17 18:47 Dose: 25 mg Docusate Sodium (Colace) 100 mg PO BID PADMAJA Last Admin: 08/08/17 21:03 Dose: 100 mg Admin: 08/08/17 10:01 Dose: 100 mg Admin: 08/07/17 20:12 Dose: 100 mg Emollient Ointment (Lansinoh Hpa) 0 gm TOP ASDIRECTED PRN PRN Reason: Sore Nipples Lactated Ringer's (Ringers, Lactated) 1,000 mls @ 500 mls/hr IV .BOLUS [facility] Last Admin: 08/07/17 09:06 Dose: 999 mls/hr Infusion: 08/07/17 09:06 Dose: 999 mls/hr Admin: 08/07/17 08:23 Dose: 999 mls/hr Infusion: 08/07/17 08:05 Dose: 500 mls/hr Admin: 08/07/17 06:05 Dose: 500 mls/hr Oxytocin/Sodium Chloride (Oxytocin 30 Unit/500 Ml-Ns) 30 unit in 500 mls @ 250 mls/hr IV TITRATE [facility] Lactated Ringer's (Ringers, Lactated) 1,000 mls @ 125 mls/hr IV ASDIRECTED [facility] Last Admin: 08/07/17 22:22 Dose: 125 mls/hr Infusion: 08/07/17 22:22 Dose: 125 mls/hr Admin: 08/07/17 14:24 Dose: 125 mls/hr Ibuprofen (Motrin) 800 mg PO Q8H PRN PRN Reason: mild pain or fever Last Admin: 08/09/17 05:13 Dose: 800 mg Admin: 08/08/17 21:03 Dose: 800 mg Ondansetron HCl (Zofran) 4 mg IV Q4H PRN PRN Reason: Nausea/Vomiting Oxycodone/Acetaminophen (Percocet 325-5 Mg) 1 tab PO Q4H PRN PRN Reason: Pain (moderate 4-6) Oxycodone/Acetaminophen (Percocet 325-5 Mg) 1 tab PO Q4H PRN PRN Reason: Pain (moderate 4-6) Last Admin: 08/08/17 12:29 Dose: 1 tab Oxycodone/Acetaminophen (Percocet 325-5 Mg) 2 tab PO Q4H PRN PRN Reason: Pain (moderate 4-6) Last Admin: 08/09/17 06:26 Dose: 2 tab Admin: 08/09/17 01:05 Dose: 2 tab Admin: 08/08/17 16:16 Dose: 2 tab Sodium Chloride (Saline Flush) 10 ml FLUSH ASDIRECTED PRN PRN Reason: Keep Vein Open Sodium Chloride (Saline Flush) 2.5 ml FLUSH ASDIRECTED PRN PRN Reason: Keep Vein Open - Assessment Assessment (Free Text/Narrative):: Status post section postoperative day #2 the patient is doing well - Plan Plan (Free Text/Narrative):: Was sent home today follow-up appointment in one week
== END 2017-08-09 14:25 | disposition home or self-care (01) | DRG 766 ==
LOC: MW.OB 05:16
PROVIDERS: ADMIT Obstetrics & Gynecology; ATTEND Obstetrics & Gynecology
PROC: 10D00Z1 Extraction of Products of Conception, Low, Open Approach (ICD-10-PCS; principal; 2017-08-07)
DX: O34.211 Maternal care for low transverse scar from previous cesarean delivery (principal); Z3A.39 39 weeks gestation of pregnancy; Z37.0 Single live birth
CPT/HCPCS: 01961; 36415; 59025; 85014; 85018; 85027; 86850; 86900; 86901; A9270-GY; J0690; J1200; J1885; J2270; J2300; J2405; J2590; J3010; J7120

== ENCOUNTER 2019-05-24 22:21 | Emergency (ER) | payer OTHER ==
--- NOTE | 2019-05-24 22:35 | EDM.PDOC ---
ED HPI GENERAL MEDICAL PROBLEM - General Stated Complaint: HEADACHE Time Seen by Provider: 05/24/19 22:32 - History of Present Illness INITIAL COMMENTS - FREE TEXT/NARRATIVE: HISTORY AND PHYSICAL: History of present illness: Patient's a 29-year-old white female presented with a headache 2 weeks she was seen by her private medical doctor recently and given a injection she's had no significant improvement she denies fever chills denies history of chronic headache denies history of migraines denies neck pain or stiffness recent trauma or other concern Review of systems: As per history of present illness and below otherwise all systems reviewed and negative. Past medical history: As per history of present illness and as reviewed below otherwise noncontributory. Surgical history: As per history of present illness and as reviewed below otherwise noncontributory. Social history: No reported history of drug or alcohol abuse. Family history: As per history of present illness and as reviewed below otherwise noncontributory. Physical exam: HEENT: Atraumatic, normocephalic, pupils reactive, negative for conjunctival pallor or scleral icterus, mucous membranes moist, throat clear, neck supple, nontender, trachea midline. Lungs: Clear to auscultation, breath sounds equal bilaterally, chest nontender. Heart: S1S2, regular, negative for clicks, rubs, or JVD. Abdomen: Soft, nondistended, nontender. Negative for masses or hepatosplenomegaly. Negative for costovertebral tenderness. Pelvis: Stable nontender. Genitourinary: Deferred. Rectal: Deferred. Extremities: Atraumatic, negative for cords or calf pain. Neurovascular unremarkable. Neuro: Awake, alert, oriented. Cranial nerves II through XII unremarkable. Cerebellum unremarkable. Motor and sensory unremarkable throughout. Exam nonfocal. Diagnostics: CT brain Therapeutics: Saline 1 L bolus and Toradol 30 mg IV Zofran 4 mg IV Reglan 10 mg IV and Benadryl 50 mg IV Impression: #1 cephalgia Definitive disposition and diagnosis as appropriate pending reevaluation and review of above. 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 Psychiatric History: Reports: Anxiety, Depression Endocrine/Metabolic History: Reports: Obesity/BMI 30+ - Infectious Disease History Infectious Disease History: Reports: Chicken Pox - Past Surgical History Head Surgeries/Procedures: Reports: None HEENT Surgical History: Reports: Other (See Below) Other HEENT Surgeries/Procedures: wisdom teeth extraction GI Surgical History: Reports: Cholecystectomy Female Surgical History: Reports: Section Musculoskeletal Surgical History: Reports: Other (See Below) Other Musculoskeletal Surgeries/Procedures:: cyst removed from middle finger Social & Family History - Family History Cardiac: Reports: High Cholesterol OBGYN: Reports: Neurological: Reports: Seizure Psychiatric: Reports: Autism Endocrine/Metabolic: Reports: Hyperthyroidism Hematologic: Reports: Anemia Oncologic: Reports: Ovarian - Caffeine Use Caffeine Use: Reports: Soda, Tea ED ROS GENERAL - Review of Systems Review Of Systems: ROS reveals no pertinent complaints other than HPI. ED EXAM, GENERAL - Physical Exam Exam: See Below (dictation) Course - Vital Signs Last Recorded V/S: Last Vital Signs Temp 36.6 C 05/24/19 22:25 Pulse 75 05/24/19 23:32 Resp 18 05/24/19 23:32 BP 147/68 H 05/24/19 23:32 Pulse Ox 95 05/24/19 23:32 - Orders/Labs/Meds Labs: Laboratory Tests 05/24/19 05/24/19 05/24/19 Range/Units 22:40 23:00 23:00 WBC 11.22 H (4.0-11.0) K/uL RBC 4.38 (4.30-5.90) M/uL Hgb 12.1 (12.0-16.0) g/dL Hct 37.8 (36.0-46.0) % MCV 86.3 (80.0-98.0) fL MCH 27.6 (27.0-32.0) pg MCHC 32.0 (31.0-37.0) g/dL RDW Std Deviation 45.1 (28.0-62.0) fl RDW Coeff of Aleyda 14 (11.0-15.0) % Plt Count 348 (150-400) K/uL MPV 10.30 (7.40-12.00) fL Neut % (Auto) 50.6 (48.0-80.0) % Lymph % (Auto) 39.8 (16.0-40.0) % [place] % (Auto) 7.5 (0.0-15.0) % Eos % (Auto) 1.7 (0.0-7.0) % Baso % (Auto) 0.4 (0.0-1.5) % Neut # (Auto) 5.7 (1.4-5.7) K/uL Lymph # (Auto) 4.5 H (0.6-2.4) K/uL [place] # (Auto) 0.8 (0.0-0.8) K/uL Eos # (Auto) 0.2 (0.0-0.7) K/uL Baso # (Auto) 0.1 (0.0-0.1) K/uL Nucleated RBC % 0.0 /100WBC Nucleated RBCs # 0 K/uL Sodium 143 (136-145) mmol/L Potassium 3.6 (3.5-5.1) mmol/L Chloride 107 (98-107) mmol/L Carbon Dioxide 25.6 (21.0-32.0) mmol/L BUN 14 (7.0-18.0) mg/dL Creatinine 0.8 (0.6-1.0) mg/dL Est Cr Clr Drug Dosing 95.38 mL/min Estimated GFR (MDRD) > 60.0 ml/min Glucose 118 H (74-106) mg/dL Calcium 8.7 (8.5-10.1) mg/dL Total Bilirubin 0.2 (0.2-1.0) mg/dL AST 20 (15-37) IU/L ALT 38 (14-63) IU/L Alkaline Phosphatase 107 (46-116) U/L Total Protein 7.8 (6.4-8.2) g/dL Albumin 3.6 (3.4-5.0) g/dL Globulin 4.2 H (2.6-4.0) g/dL Albumin/Globulin Ratio 0.9 (0.9-1.6) Urine HCG, Qual NEGATIVE (NEGATIVE) Meds: Medications Discontinued Medications Generic Name Dose Route Start Last Admin Trade Name Jere PRN Reason Stop Dose Admin Diphenhydramine HCl 50 mg 05/24/19 22:41 05/24/19 23:22 Benadryl IVPUSH 05/24/19 22:42 50 mg ONETIME ONE Administration Sodium Chloride 1,000 mls @ 999 mls/hr 05/24/19 22:39 05/24/19 23:04 Normal Saline IV 05/24/19 23:39 999 mls/hr .Bolus ONE Administration Ketorolac Tromethamine 30 mg 05/24/19 22:40 05/24/19 23:06 Toradol IVPUSH 05/24/19 22:41 30 mg ONETIME ONE Administration Metoclopramide HCl 10 mg 05/24/19 22:41 05/24/19 23:23 Reglan IVPUSH 05/24/19 22:42 10 mg ONETIME ONE Administration Ondansetron HCl 4 mg 05/24/19 22:40 05/24/19 23:04 Zofran IVPUSH 05/24/19 22:41 4 mg ONETIME ONE Administration Departure - Departure Time of Disposition: 00:39 Disposition: Home, Self-Care 01 Condition: Good Clinical Impression: Cephalgia - Discharge Information Referrals: PCP,None [Primary Care Provider] - Additional Instructions: The following information is given to patients seen in the emergency department who are being discharged to home. This information is to outline your options for follow-up care. We provide all patients seen in our emergency department with a follow-up referral. The need for follow-up, as well as the timing and circumstances, are variable depending upon the specifics of your emergency department visit. If you don't have a primary care physician on staff, we will provide you with a referral. We always advise you to contact your personal physician following an emergency department visit to inform them of the circumstance of the visit and for follow-up with them and/or the need for any referrals to a consulting specialist. The emergency department will also refer you to a specialist when appropriate. This referral assures that you have the opportunity for followup care with a specialist. All of these measure are taken in an effort to provide you with optimal care, which includes your followup. Under all circumstances we always encourage you to contact your private physician who remains a resource for coordinating your care. When calling for followup care, please make the office aware that this follow-up is from your recent emergency room visit. If for any reason you are refused follow-up, please contact the [facility] emergency department at and asked to speak to the emergency department charge nurse. Follow-up primary medical doctor as discussed return as needed as discussed
[2019-05-24] MEDS ORDERED: Sodium Chloride 0.9% 1,000 ML IV ONE (22:39)
[2019-05-24] MEDS ORDERED: Ondansetron 4 MG/2 ML SDV IVPUSH ONE (22:40)
[2019-05-24] MEDS ORDERED: Ketorolac 30 MG/ML SDV IVPUSH ONE (22:40)
[2019-05-24] MEDS ORDERED: diphenhydrAMINE 50 MG/ML SDV IVPUSH ONE (22:41)
[2019-05-24] MEDS ORDERED: Metoclopramide 10 MG/2 ML SDV IVPUSH ONE (22:41)
[2019-05-24 23:25] LABS: BLOOD UREA NITROGEN,BUN 14 mg/dL (7.0-18.0); CARBON DIOXIDE,CO2 25.6 mmol/L (21.0-32.0); CHLORIDE,CL 107 mmol/L (98-107); GLUCOSE RANDOM 118 mg/dL (74-106); POTASSIUM,K 3.6 mmol/L (3.5-5.1); SODIUM,NA 143 mmol/L (136-145)
--- NOTE | 2019-05-24 23:26 | CT ---
INDICATION: Headache TECHNIQUE: CT Head without i.v. contrast. COMPARISON: None FINDINGS: CSF space: The ventricles are normal for age. Brain: No evidence of mass, acute infarction or hemorrhage is seen. No mass-effect or midline shift is seen. The brain parenchyma is otherwise normal in appearance with preservation of the rendon-white matter junction. Calvarium: The visualized paranasal sinuses are well aerated. The mastoid air cells are clear. The visualized orbits are grossly unremarkable. The calvarium is unremarkable in appearance with no fractures identified. IMPRESSION: 1. No evidence of acute infarction, intracranial hemorrhage, or mass-effect seen. Please note that all CT scans at this facility use dose modulation, iterative reconstruction, and/or weight-based dosing when appropriate to reduce radiation dose to as low as reasonably achievable. Dictated by: Bay Marcos MD @ 05/24/2019 23:23:56 (Electronically Signed)
== END 2019-05-25 00:45 | disposition home or self-care (01) ==
LOC: MW.ED 22:21
DX: R51 Headache (principal); E66.9 Obesity, unspecified; Z68.42 Body mass index [BMI] 45.0-49.9, adult; Z91.048 Other nonmedicinal substance allergy status
CPT/HCPCS: 36415; 70450; 80053; 81025; 85025; 96361; 96374; 96375; 99284; J1200; J1885; J2405; J2765; J7040

== ENCOUNTER 2019-05-25 22:42 | Emergency (ER) | payer OTHER ==
[2019-05-25] MEDS ORDERED: Ketorolac 30 MG/ML SDV IVPUSH ONE (22:55)
[2019-05-25] MEDS ORDERED: diphenhydrAMINE 50 MG/ML SDV IVPUSH ONE (22:55)
[2019-05-25] MEDS ORDERED: Metoclopramide 10 MG/2 ML SDV IVPUSH ONE (22:55)
[2019-05-25] MEDS ORDERED: Sodium Chloride 0.9% 1,000 ML IV ONE (22:55)
[2019-05-25] MEDS ORDERED: Ondansetron 4 MG/2 ML SDV IVPUSH ONE (22:55)
--- NOTE | 2019-05-25 23:06 | EDM.PDOC ---
ED HPI GENERAL MEDICAL PROBLEM - General Chief Complaint: Headache Stated Complaint: HEAD ACHE Time Seen by Provider: 05/25/19 23:05 - History of Present Illness INITIAL COMMENTS - FREE TEXT/NARRATIVE: HISTORY AND PHYSICAL: History of present illness: 29-year-old white female presents with a concern of headache this going on for several weeks she was seen by her private medical doctor and by myself in the ER yesterday CT of her brain was unremarkable yesterday she did receive IV fluids Toradol Reglan Zofran and Toradol with complete resolution was discharged home she states this headache recurred today and she presents now. This is same as yesterday with no new changes Review of systems: As per history of present illness and below otherwise all systems reviewed and negative. Past medical history: As per history of present illness and as reviewed below otherwise noncontributory. Surgical history: As per history of present illness and as reviewed below otherwise noncontributory. Social history: No reported history of drug or alcohol abuse. Family history: As per history of present illness and as reviewed below otherwise noncontributory. Physical exam: HEENT: Atraumatic, normocephalic, pupils reactive, negative for conjunctival pallor or scleral icterus, mucous membranes moist, throat clear, neck supple, nontender, trachea midline. Lungs: Clear to auscultation, breath sounds equal bilaterally, chest nontender. Heart: S1S2, regular, negative for clicks, rubs, or JVD. Abdomen: Soft, nondistended, nontender. Negative for masses or hepatosplenomegaly. Negative for costovertebral tenderness. Pelvis: Stable nontender. Genitourinary: Deferred. Rectal: Deferred. Extremities: Atraumatic, negative for cords or calf pain. Neurovascular unremarkable. Neuro: Awake, alert, oriented. Cranial nerves II through XII unremarkable. Cerebellum unremarkable. Motor and sensory unremarkable throughout. Exam nonfocal. Diagnostics: None Therapeutics: Saline 1 L bolus Toradol 30 mg IV Zofran 4 mg IV Reglan 10 mg IV Benadryl 50 mg IV Impression: #1 cephalgia rule out migraine headache Definitive disposition and diagnosis as appropriate pending reevaluation and review of above. 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 Psychiatric History: Reports: Anxiety, Depression Endocrine/Metabolic History: Reports: Obesity/BMI 30+ - Infectious Disease History Infectious Disease History: Reports: Chicken Pox - Past Surgical History Head Surgeries/Procedures: Reports: None HEENT Surgical History: Reports: Other (See Below) Other HEENT Surgeries/Procedures: wisdom teeth extraction GI Surgical History: Reports: Cholecystectomy Female Surgical History: Reports: Section, Other (See Below) Other Female Surgeries/Procedures: x 3 Endocrine Surgical History: Reports: None Neurological Surgical History: Reports: None Musculoskeletal Surgical History: Reports: Other (See Below) Other Musculoskeletal Surgeries/Procedures:: cyst removed from middle finger Social & Family History - Family History Family Medical History: Noncontributory Cardiac: Reports: High Cholesterol OBGYN: Reports: Neurological: Reports: Seizure Psychiatric: Reports: Autism Endocrine/Metabolic: Reports: Hyperthyroidism Hematologic: Reports: Anemia Oncologic: Reports: Ovarian - Tobacco Use Smoking Status *Q: Never Smoker Second Hand Smoke Exposure: No - Caffeine Use Caffeine Use: Reports: Soda - Recreational Drug Use Recreational Drug Use: No ED ROS GENERAL - Review of Systems Review Of Systems: ROS reveals no pertinent complaints other than HPI. ED EXAM, GENERAL - Physical Exam Exam: See Below (dictation) Course - Vital Signs Last Recorded V/S: Last Vital Signs Temp 36.6 C 05/25/19 22:50 Pulse 68 05/26/19 01:08 Resp 16 05/26/19 01:08 BP 120/65 05/26/19 01:08 Pulse Ox 98 05/26/19 01:08 - Orders/Labs/Meds Meds: Medications Discontinued Medications Generic Name Dose Route Start Last Admin Trade Name Freq PRN Reason Stop Dose Admin Diphenhydramine HCl 50 mg 05/25/19 22:55 05/25/19 23:11 Benadryl IVPUSH 05/25/19 22:56 50 mg ONETIME ONE Administration Sodium Chloride 1,000 mls @ 999 mls/hr 05/25/19 22:55 05/25/19 23:11 Normal Saline IV 05/25/19 23:55 999 mls/hr .Bolus ONE Administration Ketorolac Tromethamine 30 mg 05/25/19 22:55 05/25/19 23:11 Toradol IVPUSH 05/25/19 22:56 30 mg ONETIME ONE Administration Metoclopramide HCl 10 mg 05/25/19 22:55 05/25/19 23:11 Reglan IVPUSH 05/25/19 22:56 10 mg ONETIME ONE Administration Ondansetron HCl 4 mg 05/25/19 22:55 05/25/19 23:11 Zofran IVPUSH 05/25/19 22:56 4 mg ONETIME ONE Administration Departure - Departure Time of Disposition: 04:40 Disposition: Home, Self-Care 01 Condition: Good Clinical Impression: Cephalgia - Discharge Information Instructions: Recurrent Migraine Headache, [id number] Referrals: Evelyn Lopez MD [Physician] - Mery Harvey MD [Primary Care Provider] - Forms: ED Department Discharge
== END 2019-05-26 01:12 | disposition home or self-care (01) ==
LOC: MW.ED 22:42
DX: R51 Headache (principal); E66.9 Obesity, unspecified; Z91.048 Other nonmedicinal substance allergy status; Z68.42 Body mass index [BMI] 45.0-49.9, adult
CPT/HCPCS: 96361; 96374; 96375; 99283; J1200; J1885; J2405; J2765; J7040